=== PATIENT | female | born 1950 | race Caucasian/White ===

== ENCOUNTER 2016-11-09 08:23 | Day surgery (SDC) | payer MEDICARE, BC ==
[~2016-11-09 08:23] MED LIST: BACTRIM DS1 TAB PO; FLEXERIL10 MG PO; HYDROCODON-ACE1 EA16 PO; IBUPROFEN; LEXAPRO20 MG PO; PERCOCET 5/3251 TAB PO; PRISTIQ ER100 MG PO; VICODIN 5/500 T1 TAB PO; VITAMINS; ZANTAC150 M1 PO; ZOFRAN4 M2 PO; ZOLOFT100 M1 PO; sudafed
[2016-11-09 09:11] LABS: BASO % 0.3 % (0-2); EOS % 3.4 % (0-7); EOSINOPHIL ABSOLUTE COUNT 0.2 tho/cmm (0.0-0.7); HCT-HEMATOCRIT 39.7 % (34.0-49.0); HGB-HEMOGLOBIN 13.2 gm/dl (12.0-15.5); LYMPH % 19.2 % (20-45); LYMPH ABSOLUTE COUNT 1.1 tho/cmm (0.8-4.5); MCH (MEAN CORPUSCULAR HGB) 29.7 pg (28.0-32.0); MCHC MEAN CORPUSCULAR HGB CONC 33.2 % (32.0-36.0); MCV (MEAN CELL VOLUME) 89.4 fl (82.0-96.0); MEAN PLATELET VOLUME 9.1 cmc (9.4-12.4); MONO % 10.7 % (0-12); MONOCYTE ABSOLUTE COUNT 0.6 tho/cmm (0.0-1.2); NEUTROPHIL ABSOLUTE COUNT 3.9 tho/cmm (1.6-8.0); NEUTROPHIL-AUTOMATED 3.9 tho/cmm (1.6-8.0); NEUTROPHILS % 66.4 % (40-80); PLATELET COUNT 367 tho/cmm (150-450); RED BLOOD COUNT 4.44 mil/cmm (4.00-5.20); RED CELL DISTRIBUTION WIDTH 13.4 % (12.4-16.4); WHITE BLOOD COUNT 5.9 tho/cmm (4.0-10.0)
[2016-11-09 09:19] LABS: PROTHROMBIN TIME 11.1 SECONDS (9.0-13.6)
[2016-11-09 09:22] LABS: ANION GAP 11 mmol/L (0-20); BLOOD UREA NITROGEN 15 mg/dl (6-24); CALCIUM 9.7 mg/dl (8.5-10.5); CARBON DIOXIDE-VENOUS 29 mmol/L (22-32); CHLORIDE 102 mmol/l (96-110); CREATININE 0.66 mg/dl (0.50-1.10); GLUCOSE 102 mg/dL (70-110); POTASSIUM 4.2 mmol/L (3.7-5.1); SODIUM 138 mmol/L (135-145); eGFR VALUE FOR BLACK >90 mL/Min
== END 2016-11-09 12:00 ==
LOC: RADSP 08:23 → SHSC 08:26
PROVIDERS: Radiology Diagnostic Radiology
PROC: 05HM33Z Insertion of Infusion Device into Right Internal Jugular Vein, Percutaneous Approach (ICD-10-PCS; principal; 2016-11-09)
PROC: B543ZZA Ultrasonography of Right Jugular Veins, Guidance (ICD-10-PCS; 2016-11-09)
DX: C15.9 Malignant neoplasm of esophagus, unspecified (principal); Z85.3 Personal history of malignant neoplasm of breast; Z90.12 Acquired absence of left breast and nipple; R10.9 Unspecified abdominal pain
CPT/HCPCS: C1788; J0690; J2250; J3010